=== PATIENT | female | born 1990 | race African-American/Black ===

== ENCOUNTER 2018-05-08 09:54 | Emergency (ER) | payer OTHER ==
[2018-05-08 10:18] LABS: ADD MAN DIFF? NO
[2018-05-08] MEDS: ONDANSETRON 4 MG INJ IV ×2 (10:19→13:23)
[2018-05-08] MEDS: HYDROmorphONE 1 MG/ML SYG IV (10:19)
[2018-05-08] MEDS: SOD CHLORIDE 0.9% 1,000 ML IV (10:19)
[2018-05-08 10:25] LABS: ABNORMAL IP MESSAGE 1; BASOPHIL # 0.1 10^3/ul (0.0-0.1); BASOPHILS % 1.1 % (0.0-2.0); EOSINOPHILS % 0.3 % (0.0-7.0); HEMOGLOBIN 10.7 g/dl (12.0-16.0); LYMPHOCYTES % 30.7 % (15.0-51.0); MEAN CORPUSCULAR HEMOGLOBIN 18.6 pg (29.0-33.0); MEAN CORPUSCULAR HGB CONC 29.7 g/dl (32.0-37.0); MEAN CORPUSCULAR VOLUME 62.5 fl (82.0-101.0); MONOCYTE # 0.5 10^3/ul (0.3-0.9); MONOCYTES % 7.1 % (0.0-11.0); NEUTROPHILS % 60.3 % (39.0-77.0); PLATELET COUNT 357 10^3/UL (140-415); RED BLOOD COUNT 5.76 10^6/ul (4.20-5.40); RED CELL DISTRIBUTION WIDTH 21.2 % (11.5-14.5)
[2018-05-08 10:25] LABS: WHITE BLOOD COUNT 6.6 10^3/ul (4.8-10.8)
[2018-05-08 10:26] LABS: POSITIVE DIFF @See below
[2018-05-08 10:36] LABS: ALANINE AMINOTRANSFERASE 18 IU/L (13-69); ALBUMIN 4.5 g/dl (3.3-4.9); ALKALINE PHOSPHATASE 62 IU/L (42-121); ANION GAP 12 (5-13); ASPARTATE AMINO TRANSFERASE 29 IU/L (15-46); BILIRUBIN,INDIRECT 0.4 mg/dl (0-1.1); BILIRUBIN,TOTAL 0.4 mg/dl (0.2-1.3); BLOOD UREA NITROGEN 12 mg/dl (7-20); CALCIUM 9.6 mg/dl (8.4-10.2); CARBON DIOXIDE 25 mmol/L (21-31); CHLORIDE 106 mmol/L (97-110); CREATININE 0.68 mg/dl (0.44-1.00); Estimated GFR > 60 mL/min (>60); GLUCOSE 125 mg/dl (70-220); POTASSIUM 3.6 mmol/L (3.5-5.1); SODIUM 143 mmol/L (135-144)
[2018-05-08 10:43] LABS: INR 0.93; PROTIME 12.6 Sec (11.9-14.9)
[2018-05-08] MEDS: MECLIZINE 12.5 MG TAB PO (13:18)
[2018-05-08] MEDS: KETOROLAC 30 MG INJ IV (13:19)
== END 2018-05-08 14:25 | disposition home or self-care (01) ==
LOC: E/R 09:54
DX: R11.2 Nausea with vomiting, unspecified (principal); H81.399 Other peripheral vertigo, unspecified ear
CPT/HCPCS: 70450; 80053; 84703; 85025; 85610; 85730; 96374; 96375; 99285-25